=== PATIENT | male | born 2000 | race Caucasian/White ===

== ENCOUNTER 2021-01-16 06:21 | Emergency (ER) | payer BC ==
[2021-01-16 08:15] LABS: HEMOGLOBIN 16.1 gm/dl (14.0-17.5); RED BLOOD COUNT 5.22 M/UL (4.20-5.50); WHITE BLOOD COUNT 7.1 K/UL (4.5-11.0)
[2021-01-16 08:47] LABS: BUN/CREATININE RATIO 12 (0-10)
[2021-01-16] MEDS ORDERED: IBUPROFEN800 MG PO (09:29)
[2021-01-16] MEDS ORDERED: ZOFRAN ODT 4 MG4 MG PO (09:29)
[2021-01-17 22:09] LABS: CHLAMYDIA TRACHOMATIS, NAA Negative (Negative); NEISSERIA GONORRHOEAE, NAA Negative (Negative)
== END 2021-01-16 10:04 | disposition home or self-care (01) ==
LOC: ER1 06:21
PROVIDERS: Emergency Medicine
DX: R10.9 Unspecified abdominal pain (principal); F17.210 Nicotine dependence, cigarettes, uncomplicated
CPT/HCPCS: 80053; 81001; 85025; 99284